=== PATIENT | male | born 1955 | race Caucasian/White ===

== ENCOUNTER 2018-07-14 11:57 | Day surgery (SDC) | payer OTHER ==
[2018-07-14] MEDS ORDERED: ceFAZolin 2 GM/DEXTROSE 100 ML IV ONE (12:12)
[2018-07-14] MEDS ORDERED: LR 1,000 ML IV ONE (12:13)
[2018-07-14] MEDS ORDERED: NS 1,000 ML IV SCH (12:45)
[2018-07-14] MEDS ORDERED: MIDAZOLAM 2 MG/2 ML VIAL IVP ONE (13:53)
--- NOTE | 2018-07-14 13:57 | PDANEPAE ---
ANE Past Medical History - Cardiovascular History Hx Hypertension: Yes Hx Arrhythmias: No Hx Chest Pain: No Hx Coronary Artery / Peripheral Vascular Disease: No Hx CHF / Valvular Disease: No Hx Palpitations: No Cardiovascular History Comment: superficial vacosities - Pulmonary History Hx COPD: No Hx Asthma/Reactive Airway Disease: No Hx Recent Upper Respiratory Infection: No Hx Oxygen in Use at Home: No Hx Sleep Apnea: No Sleep Apnea Screening Result - Last Documented: Positive Pulmonary History Comment: NEG - Neurologic History Hx Cerebrovascular Accident: No Hx Seizures: No Hx Dementia: No - Endocrine History Hx Diabetes: No - Renal History Hx Renal Disorders: No - Liver History Hx Hepatic Disorders: No - Neurological & Psychiatric Hx Hx Neurological and Psychiatric Disorders: No - Cancer History Hx Cancer: No - Congenital Disorder History Hx Congenital Disorders: No - GI History Hx Gastrointestinal Disorders: No - Other Health History Other Health History: none - Chronic Pain History Chronic Pain: No - Surgical History Prior Surgeries: RTC REPAIR R X2. R ACL REPAIR. LAURE 04/13 ANE Review of Systems Review of Systems: - Exercise capacity METS (RN): 4 METS ANE Patient History - Allergies Allergies/Adverse Reactions: hydrocodone Allergy (Verified 04/13/15 08:42) Itching oxycodone [Oxycodone] Allergy (Verified 04/13/15 08:42) Itching - Home Medications Home Medications: Losartan/Hydrochlorothiazide [Losartan-Hctz 100-25 mg Tab] 03/16/15 [Last Taken 07/13/18] Simvastatin [Zocor] 03/16/15 [Last Taken 07/14/18] Atenolol 07/07/18 [Last Taken 07/14/18] Effexor Xr 07/07/18 [Last Taken 07/14/18] Hydralazine HCl 07/07/18 [Last Taken 07/14/18] - NPO status NPO Since - Liquids (Date): 07/14/18 NPO Since - Liquids (Time): 10:30 NPO Since - Solids (Date): 07/13/18 NPO Since - Solids (Time): 18:00 - Smoking Hx Smoking Status: Former smoker - Family Anes Hx Family Hx Anesthesia Complications: none ANE Labs/Vital Signs - Vital Signs Blood Pressure: 155/84 Heart Rate: 71 Respiratory Rate: 16 O2 Sat (%): 96 Height: 182.88 cm Weight: 127.006 kg ANE Physical Exam - Airway Neck exam: FROM Mallampati Score: Class 2 Mouth exam: normal dental/mouth exam - ASA Status ASA Status: II ANE Anesthesia Plan Anesthesia Plan: MAC
--- NOTE | 2018-07-14 14:24 | PDHPUP ---
History & Physical Update H&P update statement: This history and physical update is based on an assessment of the patient which was completed after admission or registration (within 24 hours), but prior to the surgery/procedure. H&P update: H&P reviewed & patient examined, no change in patient's condition since H&P completed
[2018-07-14] MEDS ORDERED: PROPOFOL/EMULSION 500 MG/50 ML BOTTLE IV ONE ×2 (14:28→15:00)
[2018-07-14] MEDS ORDERED: BUPIVACAINE 0.5% 30 ML SDV ONE (14:31)
[2018-07-14] MEDS ORDERED: BACITRACIN 50,000 UNITS/10 ML SYR IRR ONE (14:33)
[2018-07-14] MEDS ORDERED: RANITIDINE 50 MG/2 ML VIAL ONE (15:06)
[2018-07-14] MEDS ORDERED: METOCLOPRAMIDE 10 MG/2 ML VIAL ONE (15:06)
[2018-07-14] MEDS ORDERED: NALOXONE HCL 0.4 MG/ML INJ IVP PRN (15:45)
[2018-07-14] MEDS ORDERED: HYDROmorphONE/DILAUDID 2 MG/ML INJ IVP PRN (15:45)
[2018-07-14] MEDS ORDERED: ONDANSETRON 4 MG/2 ML VIAL IVP PRN ×2 (15:45→16:08)
[2018-07-14] MEDS ORDERED: LR 500 ML IV PRN (15:45)
[2018-07-14] MEDS ORDERED: ALBUTEROL 3 ML DEYVIAL IH PRN (15:45)
[2018-07-14] MEDS ORDERED: ACETAMINOPHEN 500 MG TAB PO PRN (15:45)
[2018-07-14] MEDS ORDERED: fentaNYL 100 MCG/2 ML INJ IVP PRN (15:45)
[2018-07-14] MEDS ORDERED: OXYCODONE/APAP 5/325 TAB PO PRN (16:08)
--- NOTE | 2018-07-14 16:38 | POSTANESTH ---
Post Anesthetic Evaluation Cardiovascular Status: Normal, Stable Respiratory Status: Normal, Stable Level of Consciousness/Mental Status: Can Participate in Eval Pain Control: Adequate, Prn Tx Ordered Nausea/Vomiting Control: Adequate, Prn Tx Ordered Complications Possibly Related to Anesthesia: None Noted
[2018-07-14 17:45] VITALS: BP 149/81
--- NOTE | 2018-07-15 13:58 | GOP ---
[f rep st] OPERATIVE REPORT DATE OF OPERATION: 07/14/2018 SURGEON: Javier Sanchez DPM FLIGHT TOWER DISPATCHER: None. ANESTHESIA: MAC with local. PREOPERATIVE DIAGNOSIS: 1. Metatarsalgia, right foot. 2. Closed dislocation of 2nd metatarsophalangeal joint, right foot. 3. Hammertoe, 2nd digit, right foot. POSTOPERATIVE DIAGNOSIS: 1. Metatarsalgia, right foot. 2. Closed dislocation of 2nd metatarsophalangeal joint, right foot. 3. Hammertoe, 2nd digit, right foot. PROCEDURE PERFORMED: 1. 2nd metatarsophalangeal joint open repair of dislocation. 2. 2nd metatarsal osteotomy, right foot. 3. Transfer of flexor tendon, right foot. 4. Repair of flexor tendon, right foot. 5. Extensor tendon lengthening, right foot. 6. Hammertoe fusion, 2nd digit, right foot. FINDINGS: Gross finding consistent with diagnosis. ESTIMATED BLOOD LOSS: Zero. INDICATIONS: Patient with long-standing history of pain and dislocation in the right foot. Patient has attempted and failed nonsurgical treatment and has elected to undergo surgical intervention at this time. DESCRIPTION OF PROCEDURE: Materials at [email or web address] CPR, as well as [employer] OrthoSorb pin. HEMOSTASIS: Right pneumatic ankle tourniquet inflated to 250 mmHg for 43 minutes. MATERIALS: [employer] CPR. INJECTABLES: None. CONDITION: Stable. DESCRIPTION OF PROCEDURE: After identification, patient brought to the operating room, placed on the operating table in the supine position. Following IV sedation, local anesthesia obtained around the patient's right foot utilizing a total of 20 mL 0.5% Marcaine plain. Pneumatic ankle tourniquet was placed on the patient's right ankle with ample padding. The foot was then scrubbed, prepped, and draped in the usual aseptic manner. An Esmarch bandage was utilized to exsanguinate the patient's right lower extremity. The pneumatic ankle tourniquet was then inflated. Attention was directed to the dorsal aspect of the patient's right foot where a 4 cm linear longitudinal incision was made over the dorsal aspect of the 2nd metatarsophalangeal joint. Incision was deepened through the subcutaneous tissue with care being taken to identify and retract all vital neural and vascular structures. Bleeders were ligated and cauterized as necessary. Dissection was continued to the level of the joint capsule where a linear capsulotomy was performed between the tendons of the extensor digitorum longus and extensor digitorum brevis. Capsular structures were reflected medially and laterally, thus exposing the 2nd metatarsophalangeal joint at the operative site. It was noted that there was extensive synovitis within the 2nd metatarsophalangeal joint. This was flushed out and sharply excised. Attention was directed to the 2nd metatarsal where an oblique Colt osteotomy was made from dorsal distal to plantar proximal in the head, neck, and shaft of the 2nd metatarsal bone. Upon completion of this [id number] osteotomy , the capital fragment was translated proximally and pinned out of the way with a K-wire. A joint distractor was used to access the plantar aspect of the 2nd metatarsophalangeal joint where the plantar plate structure was directly visualized. There was noted to be at least 50% torn laterally and there was also a longitudinal tear at the lateral aspect of the plantar plate. There was extensive synovitis within the plantar plate structure. The remaining medial aspect of the plantar plate structure was sharply dissected free from its attachment to the base of the proximal phalanx. The plantar plate was reflected proximally to expose the flexor tendons to the 2nd digit which were noted to be damaged with split tearing and were directly repaired using 3-0 Vicryl. Next, using a suture passing instrument, the plantar plate was gathered as well as the flexor tendon apparatus using a horizontal mattress suture. There was noted to be good purchase of the suture which was then woven through the collateral ligaments and then passed through 2 crossing drill holes in the base of the proximal phalanx of the 2nd digit. It was noted that the plantar plate structure, as well as the flexor tendon structure was gathered and when pulled taut were now transferred to the base of the proximal phalanx. Attention was directed to the 2nd metatarsal, which was brought back out to appropriate length and fixated using 2 x 2.0 snap-off screws. The metatarsal was fixated in approximately 1-2 mm shortened position. Redundant bone was excised and smoothed with a bone bur. Fixation was noted to be excellent and position of the 2nd metatarsal was noted to be excellent. The FiberWire sutures were then pulled through the crossing drill holes in the proximal phalanx from plantar to dorsal, pulled taut, transferring the flexor tendon structures and plantar plate structure to the base of the proximal phalanx. These were tied to themselves of the dorsal aspect of the bone, thus serving as stable fixation and transfer of the plantar plate and flexor tendons. Position of the 2nd digit was noted to be adequate at this time. Prior to closing the capsular structures, the extensor tendon was Z-lengthening and suture repaired using 2-0 Vicryl. Capsular structures were reapproximated utilizing 3-0 Vicryl. Attention was then directed to the dorsal aspect of the 2nd proximal interphalangeal joint of the 2nd digit through the original skin incision where a transverse capsulotomy and tenotomy were performed at the dorsal aspect of the joint. Capsular tendon structures reflected proximally and distally, thus exposing the proximal interphalangeal joint of the 2nd digit at the operative site. Using a sagittal saw, the head of the proximal phalanx and base of the middle phalanx were resected and passed from the operative field. A [employer] OrthoSorb pin was driven from distal to proximal into the proximal phalanx and left approximately 5 mm proud distally. This was skewered into the middle phalanx which served as stable fixation in a rectus position. The incision was flushed with normal sterile saline solution. Capsular tendinous structures were reapproximated using 2-0 Vicryl. Subcutaneous tissue reapproximated using 3-0 Vicryl and skin reapproximated utilizing 5-0 Vicryl in a running subcuticular suture technique. Incision site was then dressed with Steri-Strips , 4 x 4 gauze, Webril, Karen, Franc bandage. Patient was transferred to the postoperative recovery with vital signs stable and vascular status intact to the right lower extremity. Patient tolerated procedure and anesthesia well. /[id number]/MODL MTDD
== END 2018-07-14 17:35 | disposition home or self-care (01) ==
LOC: FSGY 11:57
PROVIDERS: ATTEND Podiatrist
PROC: 0LXN0ZZ Transfer Right Lower Leg Tendon, Open Approach (ICD-10-PCS; principal; 2018-07-14 14:30)
PROC: 0SSM04Z Reposition Right Metatarsal-Phalangeal Joint with Internal Fixation Device, Open Approach (ICD-10-PCS; principal; 2018-07-14 14:30)
PROC: 0QQN0ZZ Repair Right Metatarsal, Open Approach (ICD-10-PCS; principal; 2018-07-14 14:30)
PROC: 0SGP04Z Fusion of Right Toe Phalangeal Joint with Internal Fixation Device, Open Approach (ICD-10-PCS; principal; 2018-07-14 14:30)
PROC: 0LQN0ZZ Repair Right Lower Leg Tendon, Open Approach (ICD-10-PCS; principal; 2018-07-14 14:30)
DX: S93.124A Dislocation of metatarsophalangeal joint of right lesser toe(s), initial encounter (principal); M20.41 Other hammer toe(s) (acquired), right foot; M77.41 Metatarsalgia, right foot; X58.XXXA Exposure to other specified factors, initial encounter; Y99.9 Unspecified external cause status
CPT/HCPCS: C1713; J0690; J2250; J2704; J2765; J2780